=== PATIENT | female | born 1955 | race Caucasian/White ===

== ENCOUNTER → 2017-03-29 | Outpatient (CLI) | payer OTHER ==
--- NOTE | 2017-03-29 13:45 | REP ---
RIGHT WRIST, FOUR VIEWS: HISTORY: Pain. There is no acute fracture or dislocation. There is narrowing of the first carpometacarpal joint space as well as the metacarpophalangeal and intermediate interphalangeal joint spaces with associated osteophyte formation. IMPRESSION: Degenerative change as described above. Signed by Devon Salazar MD 03/29/2017 02:03 P
== END ==
LOC: M WUC 11:59
PROVIDERS: ATTEND Physician Assistant
DX: M18.11 Unilateral primary osteoarthritis of first carpometacarpal joint, right hand (principal)

== ENCOUNTER → 2018-09-18 | Outpatient (CLI) | payer OTHER ==
[2018-09-18 16:50] LABS: BASO % 0.4 % (0.0-1.0); EOS # 0.1 10^3/uL (0.0-0.50); EOS % 1.7 % (0.0-3.0); HEMATOCRIT 38.5 % (36.0-47.0); HEMOGLOBIN 13.2 g/dl (12.0-15.5); LYMPH % 19.9 % (24.0-44.0); MEAN CORPUSCULAR HEMOGLOBIN 29.7 pg (27.0-33.0); MEAN CORPUSCULAR HGB CONC 34.3 g/dl (32.0-36.5); MEAN CORPUSCULAR VOLUME 86.5 fl (80.0-96.0); MONO # 0.4 10^3/uL (0.0-0.8); MONO % 6.7 % (0.0-5.0); NEUTROPHILS # 3.7 10^3/uL (1.8-7.7); NEUTROPHILS % 70.9 % (36.0-66.0); PLATELET COUNT, AUTOMATED 270 10^3/uL (150-450); RED BLOOD COUNT 4.45 10^6/uL (4.00-5.40); WHITE BLOOD COUNT 5.2 10^3/uL (4.0-10.0)
[2018-09-18 16:55] LABS: BLOOD UREA NITROGEN 17 MG/DL (7-18); CALCIUM LEVEL 9.1 MG/DL (8.8-10.2); CARBON DIOXIDE LEVEL 30 MEQ/L (21-32); CHLORIDE LEVEL 97 MEQ/L (98-107); CREATININE FOR GFR 0.83 MG/DL (0.55-1.30); GLOMERULAR FILTRATION RATE > 60.0 (>45); GLUCOSE, FASTING 88 MG/DL (70-100); POTASSIUM SERUM 3.7 MEQ/L (3.5-5.1); SODIUM LEVEL 137 MEQ/L (136-145)
== END ==
LOC: M WUC 12:56
PROVIDERS: ATTEND Internal Medicine Cardiovascular Disease
DX: R07.9 Chest pain, unspecified (principal); R94.39 Abnormal result of other cardiovascular function study

== ENCOUNTER → 2018-12-28 | Outpatient (CLI) | payer OTHER ==
[2018-12-28 18:10] LABS: ALBUMIN 3.7 GM/DL (3.2-5.2); ALT/SGPT 32 U/L (12-78); BILIRUBIN,TOTAL 0.6 MG/DL (0.2-1.0); BLOOD UREA NITROGEN 17 MG/DL (7-18); CALCIUM LEVEL 8.5 MG/DL (8.8-10.2); CARBON DIOXIDE LEVEL 31 MEQ/L (21-32); CHLORIDE LEVEL 105 MEQ/L (98-107); CREATININE FOR GFR 0.77 MG/DL (0.55-1.30); GLOMERULAR FILTRATION RATE > 60.0 (>45); GLUCOSE, FASTING 89 MG/DL (70-100); POTASSIUM SERUM 3.9 MEQ/L (3.5-5.1); SODIUM LEVEL 142 MEQ/L (136-145); TOTAL PROTEIN 7.1 GM/DL (6.4-8.2)
== END ==
LOC: M WUC 14:30
PROVIDERS: ATTEND Nurse Practitioner Adult Health
DX: Z51.81 Encounter for therapeutic drug level monitoring (principal); Z79.899 Other long term (current) drug therapy; E78.2 Mixed hyperlipidemia; E11.9 Type 2 diabetes mellitus without complications

== ENCOUNTER → 2019-04-07 | Outpatient (REF) | LOC: M LAB LCGH 15:10 | PROVIDERS: ATTEND Surgery | DX: Z00.00 Encounter for general adult medical examination without abnormal findings (principal) ==

== ENCOUNTER → 2019-06-28 | Outpatient (CLI) | payer MEDICARE, OTHER ==
--- NOTE | 2019-06-28 12:08 | REP ---
HIDA SCAN: Following the intravenous administration of 6.6 mCi technetium 99m mebrofenin, multiple images of the right upper quadrant are performed for 1 hour. There is radiotracer activity draining through the drainage tube. There is activity in the biliary system which extends into the duodenum at 25 minutes postinjection. No free leakage is identified scintigraphically into the peritoneal cavity. Electronically Signed by Sebastian James MD 07/01/2019 09:14 A
== END ==
LOC: M RAD 09:16
PROVIDERS: ATTEND Physician Assistant
DX: K83.2 Perforation of bile duct (principal)
CPT/HCPCS: 78226; A9537

== ENCOUNTER → 2019-08-28 | Outpatient (CLI) | payer MEDICARE ==
--- NOTE | 2019-08-28 13:39 | REP ---
Hepatobiliary scan: History: Bile leakage status post gallbladder removal. Comparison study June 28, 2019. Technique: 6.4 mCi technetium 99m mebrofenin is injected and sequential anterior abdominal images are acquired. Scintigraphic findings: The initial hepatocellular parenchymal uptake phase is normal and homogeneous. Intrahepatic bile ducts are first labeled at the 10-minute charity along with early gastrointestinal labeling. Subsequent images demonstrate washout from the liver parenchyma into the small intestine. There is no evidence of bile stream leakage. Impression: Normal hepatobiliary scan post cholecystectomy. No evidence of bile leak seen scintigraphically. Electronically Signed by Darnell Gonzalez MD 08/28/2019 07:03 P
== END ==
LOC: M RAD 08:32
PROVIDERS: ATTEND Physician Assistant
DX: K83.2 Perforation of bile duct (principal)
CPT/HCPCS: 78226; A9537

== ENCOUNTER → 2021-02-23 | Outpatient (CLI) | payer MEDICARE ==
[~2021-02-23] MED LIST: LIDOCAINE 1% MDV 20ML VIAL As Ordered ONE; LOSA50TA88 PO; POTA1TAB14 PO; SIMV40TA20 PO; SODIUM BICARBONATE 8.4% INJ 50MEQ 50 ML VIAL As Ordered ONE; VENL150C43 PO
[2021-02-23 12:26] VITALS: BP 158/80
--- NOTE | 2021-02-23 18:45 | REP ---
INDICATION: LT PAROTID MASS. COMPARISON: None. TECHNIQUE: The procedure was performed by Marietta Salas [facility], under the direct supervision of Dr. James. The risks and benefits of the procedure were explained to the patient and an informed consent was obtained both verbally and written. Directly prior to the start of the procedure a formal time-out was completed in the procedure room. FINDINGS: Using ultrasound guidance the left parotid mass was localized. Due to the location of the mass it was determined that a fine needle aspiration would be the safest approach. The skin was prepped and draped in a sterile fashion. Two mL of buffered lidocaine was used as a local anesthetic. Using ultrasound guidance a 8 fine needle aspirations were obtained using 25 gauge needles. Four specimens were sent to our lab here, and remaining 4 were sent out in RPMI solution, for further testing. The patient tolerated the procedure well and there were no immediate complications. After the appropriate amount of monitored convalescence the patient was discharged from the department. IMPRESSION: 1. Ultrasound-guided left parotid mass fine-needle aspiration. <Electronically signed by Marietta Salas > 02/23/21 1442 <Electronically signed by Sebastian James > 02/23/21 3030
== END ==
LOC: M IRPRO 11:21
PROVIDERS: ATTEND Otolaryngology
DX: R89.6 Abnormal cytological findings in specimens from other organs, systems and tissues (principal); D37.030 Neoplasm of uncertain behavior of the parotid salivary glands

== ENCOUNTER → 2021-03-10 | Outpatient (CLI) | payer MEDICARE ==
[~2021-03-10] MED LIST changes: -LIDOCAINE 1% MDV 20ML VIAL As Ordered ONE; -SODIUM BICARBONATE 8.4% INJ 50MEQ 50 ML VIAL As Ordered ONE
== END ==
LOC: M LABSMTC 11:56
PROVIDERS: ATTEND Anesthesiology
DX: Z01.818 Encounter for other preprocedural examination (principal)

== ENCOUNTER 2021-03-15 10:13 | Day surgery (SDC) | payer MEDICARE ==
[~2021-03-15] VITALS: Ht 162.6 cm; Wt 125.4 kg
[~2021-03-15 10:13] MED LIST changes: +LR 1,000 ML IV ONE
[2021-03-15] MEDS ORDERED: LIDOCAINE 2% 100MG/5ML SDV (FOR ANES.) As Ordered ONE (10:44)
[2021-03-15] MEDS ORDERED: propofoL 200 MG/20 ML VIAL As Ordered ONE (10:44)
[2021-03-15] MEDS ORDERED: ROCURONIUM BROMIDE 50 MG/5 ML VIAL As Ordered ONE ×2 (10:44→10:47)
[2021-03-15] MEDS ORDERED: dexameTHASONE 4 MG/ML 1ML VIAL (J1100 PER 1MG) As Ordered ONE (10:44)
[2021-03-15] MEDS ORDERED: ONDANSETRON 4MG/2ML VIAL As Ordered ONE (10:44)
[2021-03-15] MEDS ORDERED: fentaNYL 250 MCG/5 ML INJECTION (J3010) As Ordered ONE (10:45)
[2021-03-15] MEDS ORDERED: MIDAZOLAM INJ 2MG/2ML VIAL (J2250 PER 1MG) As Ordered ONE (10:45)
[2021-03-15] MEDS ORDERED: LIDOCAINE W/EPINEPHRINE 1% 20ML VIAL As Ordered ONE (13:10)
[2021-03-15] MEDS ORDERED: BACITRACIN OINTMENT 30GM TUBE As Ordered ONE (13:10)
[2021-03-15] MEDS ORDERED: SEVOFLURANE INHAL SOLN 250 ML BTL As Ordered ONE (13:22)
[2021-03-15] MEDS ORDERED: LABETALOL 100MG/20ML VIAL As Ordered ONE (14:39)
[2021-03-15] MEDS ORDERED: ACETAMINOPHEN 1000MG 100ML IV BTL (OFIRMEV) (J0131 PER 10MG) As Ordered ONE (14:42)
[2021-03-15] MEDS ORDERED: HYDROmorphone HCL 2 MG/ML 1ML VIAL (J1170) As Ordered ONE (14:51)
[2021-03-15] MEDS ORDERED: REMIFENTANIL 1MG 3ML VIAL As Ordered ONE (15:36)
[2021-03-15] MEDS ORDERED: ePHEDrine SULFATE 25 MG/5 ML(5MG/ML) SYRINGE As Ordered ONE ×2 (15:48→15:59)
[2021-03-15] MEDS ORDERED: SUGAMMADEX SODIUM 500 MG/5 ML VIAL (BRIDION) As Ordered ONE (16:33)
--- NOTE | 2021-03-15 17:20 | POST-OPPD ---
Postoperative Procedure Note Date Of Procedure: Mar 15, 2021 Time Of Procedure: 17:00 PREOPERATIVE DIAGNOSIS: [Left parotid mass] POSTOPERATIVE DIAGNOSIS: [Same] PROCEDURE: [Left superficial parotidectomy with facial nerve monitoring] SURGEON: [Surgeon Dr. Telles] AUDIT PRACTICE INTERN: [Net Maker Dr. Landrum] ANESTHESIA: [General] ESTIMATED BLOOD LOSS: [100] FINDINGS: SPECIMENS: [Left parotid mass] COMPLICATIONS: [None] REPLACED: [None] DRAINS: [BHANU] POSTOPERATIVE CONDITION: [None ] Operative note: Fariba's patient was seen in the office and diagnosed the above condition decision was made in consultation with the patient after explanation of the risks and benefits to undergo the above-named procedure. She was admitted to the same-day surgery program taken to the operating room where she was administered a general anesthetic via intravenous injection she was then intubated endotracheally. The facial nerve monitor was connected and accuracy was ensured. We prepped and draped in usual sterile fashion the skin was marked with a surgical marking pen. We injected the skin with 1% lidocaine with epinephrine. Using a 15 blade we incised the skin sharply along the anterior tragal crease behind the ear and onto an anterior neck crease. We elevated the flap off of the sternocleidomastoid muscle and off the parotid fascia. This was secured with a 2-0 silk suture. We then dissected down the anterior wall of the cartilaginous canal. We identified the tragal pointer. We then identified the facial nerve. Branches were traced in succession and the parotid tissue was elevated off. We moved in an inferior to superior fashion. Each area was stimulated before sacrificing. The mass was then removed we irrigated thoroughly with saline. Each branch was then tested and found to be intact. A BHANU drain was placed. Eleno was placed in the wound bed we closed with interrupted 4-0 Vicryl suture the skin was closed with 5-0 Prolene in a running locking fashion. Bacitracin ointment was placed over the wound. Patient was allowed to recover from anesthetic and taken the postanesthesia care area in stable condition. Jason Telles MD Mar 15, 2021 17:20
[2021-03-15] MEDS ORDERED: LR 1,000 ML IV SCH (17:25)
[2021-03-15] MEDS ORDERED: ONDANSETRON 4MG/2ML VIAL IV PRN ×2 (17:25→17:35)
[2021-03-15] MEDS ORDERED: oxyCODONE 5MG TAB PO PRN (17:25)
[2021-03-15] MEDS ORDERED: fentaNYL 100 MCG/2 ML INJECTION (J3010) IV PRN (17:25)
[2021-03-15] MEDS ORDERED: MEPERIDINE 50 MG/ML 1ML VIAL (J2175) IM PRN (18:05)
[2021-03-15] MEDS: SIMVASTATIN 40 MG TAB PO SCH (18:35)
[2021-03-15] MEDS: VENLAFAXINE **XR** 75MG CAPSULE PO SCH (18:35)
[2021-03-15] MEDS: LOSARTAN 50MG TABLET PO SCH (18:35)
[2021-03-15] MEDS: ANEXSIA, NORCO 7.5MG/325MG TABLET(HYDROCODONE/APAP) PO PRN (18:49)
[2021-03-15 19:00] VITALS: BP 159/70
--- NOTE | 2021-03-15 19:58 | ECGEPIP ---
[facility] Test Date: 2021-03-15 Pat Name: DEIRDRE SIMON Department: Room: - Gender: Female Schedule Hanger: XIANG : 1955 Requested By: Jason Arora Order Number: [id number] Reading MD: Josue Pina Measurements Intervals Bradley Rate: 69 P: 44 UT: 180 QRS: -9 QRSD: 92 T: 13 QT: 398 QTc: 426 Interpretive Statements normal sinus rhythm with isolated PAC. LA conduction disturbance LEFT VENTRICULAR HYPERTROPHY by Pieter criteria No prior tracing for comparison Electronically Signed on 03-15-2021 19:58:02 EDT by Josue Pina
[2021-03-15 22:00] VITALS: BP 140/66
[2021-03-15] MEDS: BACITRACIN OINTMENT 30GM TUBE TOP SCH (22:46)
[2021-03-16] MEDS ORDERED: LR 1,000 ML IV SCH (01:55)
[2021-03-16] MEDS ORDERED: CLINDAMYCIN 600 MG in IV 1 EA IV SCH (02:00)
[2021-03-16] MEDS: CLINDAMYCIN 600 MG in IV 1 EA IV SCH ×2 (02:23→09:16)
[2021-03-16 06:00] VITALS: BP 141/63
[2021-03-16] MEDS: ANEXSIA, NORCO 7.5MG/325MG TABLET(HYDROCODONE/APAP) PO PRN (06:33)
[2021-03-16] MEDS: SIMVASTATIN 40 MG TAB PO SCH (09:16)
[2021-03-16] MEDS: VENLAFAXINE **XR** 75MG CAPSULE PO SCH (09:16)
[2021-03-16 09:17] VITALS: BP 141/63
[2021-03-16] MEDS: LOSARTAN 50MG TABLET PO SCH (09:17)
[2021-03-16] MEDS: BACITRACIN OINTMENT 30GM TUBE TOP SCH (09:18)
[2021-03-16 10:00] VITALS: BP 134/58
--- NOTE | 2021-03-16 13:38 | DS.PDOC ---
Discharge Summary General Date of Admission 03/15/21 Date of Discharge 03/16/21 Attending Physician: Jason Telles MD Discharge Summary PROCEDURES PERFORMED DURING STAY: [None]. ADMITTING DIAGNOSES: 1. [Left parotid mass]. DISCHARGE DIAGNOSES: 1. [Same]. COMPLICATIONS/CHIEF COMPLAINT: Left Parotid Mass. HISTORY OF PRESENT ILLNESS: . Fariba is a 66-year-old patient with a left parotid mass. FNA was indeterminate. She underwent surgical resection yesterday. HOSPITAL COURSE: [Fariba underwent surgical resection on 03/15/2021. She was observed overnight. Drainage was 15 overnight and 6 during the day. Drain was removed. Postoperatively Fariba had weakness of the left facial nerve. During the surgery we were able to stimulate the branches with good response in all branches. We will discharge her home with the prescription for prednisone, Augmentin and Lortab. She will follow up in 1 week for suture removal. We discussed at length the importance of Lacri-Lube in her left eye. She understands that if there is any irritation whatsoever she will contact the office immediately.]. DISCHARGE MEDICATIONS: Please see below. ALLERGIES: Please see below. PHYSICAL EXAMINATION ON DISCHARGE: VITAL SIGNS: Please see below. GENERAL: [Alert and oriented no distress.] HEENT: [Parotid incision is clean and dry covered with bacitracin no significant swelling or infection. Facial nerve remains weak. There is no eye irritation.] NECK: CARDIOVASCULAR EXAMINATION: RESPIRATORY EXAMINATION: ABDOMINAL EXAMINATION: EXTREMITIES: SKIN: NEUROLOGICAL EXAMINATION: PSYCHIATRIC EXAMINATION: LABORATORY DATA: Please see below. IMAGING: [None] PROGNOSIS: [Good] ACTIVITY: [As tolerated]. DIET: [Resume normal diet] DISCHARGE PLAN: [She will to be discharged today. She is to follow-up in 1 week for suture removal.] DISPOSITION: . DISCHARGE INSTRUCTIONS: 1. [Coat the area with bacitracin ointment twice daily for the next week. Avoid heavy exercise or lifting. We discussed the importance of eye care and she will contact the office if there is any issues with irritation or soreness. She will use the Lacri-Lube at night. Prescriptions were given. Follow-up 1 week for suture removal]. ITEMS TO FOLLOWUP ON ON OUTPATIENT: 1. . DISCHARGE CONDITION: [Stable]. TIME SPENT ON DISCHARGE: minutes. Vital Signs/I&Os Vital Signs Date Time Temp Pulse Resp B/P (MAP) Pulse Ox O2 Delivery O2 Flow Rate FiO2 03/16/21 10:00 97.2 63 16 134/58 (83) 95 Room Air 03/15/21 22:00 2.0 I&O- Last 24 Hours up to 6 AM 03/16/21 06:00 Intake Total 1800 ml Output Total 680 ml Balance 1120 ml Laboratory Data Labs 24H Laboratory Tests 2 03/15/21 18:28: Bedside Glucose (Misc Panel) 156H FSBS Laboratory Tests Test 03/15/21 18:28 Range/Units Bedside Glucose (Misc Panel) 156 80-115 MG/DL Discharge Medications Scheduled Losartan Potassium (Losartan Potassium) 50 Mg Tablet, 50 MG PO DAILY, (Reported) Potassium Chloride (Potassium Chloride) 20 Meq Tablet.er, 20 MEQ PO DAILY, (Reported) Simvastatin (Simvastatin) 40 Mg Tablet, 40 MG PO DAILY, (Reported) Venlafaxine HCl (Venlafaxine HCl ER) 150 Mg Cap.er.24h, 1 CAP PO DAILY, (Repor margy) Allergies Coded Allergies: Sulfa (Sulfonamide Antibiotics) (Verified Allergy, Intermediate, SWELLING AND HIVES, 03/12/21) morphine (Verified Allergy, Unknown, 03/12/21) Jason Telles MD Mar 16, 2021 13:38
== END 2021-03-16 13:35 | disposition home or self-care (01) ==
LOC: M SDC 10:13 → M MS5PR 18:25 → M SDC 03-16 13:35
PROVIDERS: ATTEND Otolaryngology
DX: D11.0 Benign neoplasm of parotid gland (principal); I10 Essential (primary) hypertension; E78.5 Hyperlipidemia, unspecified; F32.9 Major depressive disorder, single episode, unspecified; Z79.899 Other long term (current) drug therapy; Z88.2 Allergy status to sulfonamides; Z88.5 Allergy status to narcotic agent
CPT/HCPCS: 42415; 88307; 93005; 96361; 96365; 96366; 96375; J0131; J1100; J1170; J2250; J2405; J3010

== ENCOUNTER → 2021-04-06 | Outpatient (RCR) | payer MEDICARE ==
[~2021-04-06] MED LIST changes: -LR 1,000 ML IV ONE
== END ==
LOC: M PT 04-02 11:53
PROVIDERS: ATTEND Otolaryngology
DX: R29.810 Facial weakness (principal); Z98.890 Other specified postprocedural states
CPT/HCPCS: 97032; 97161; G0283

== ENCOUNTER 2021-05-05 14:14 | Outpatient (RCR) | payer MEDICARE | END 2021-05-06 | LOC: M PT 14:14 | PROVIDERS: ATTEND Otolaryngology | DX: Z98.890 Other specified postprocedural states (principal); D11.9 Benign neoplasm of major salivary gland, unspecified ==

== ENCOUNTER 2021-05-07 11:45 | Outpatient (RCR) | payer MEDICARE | END 2021-06-06 | LOC: CANPRERCR → M PT 13:01 | PROVIDERS: ATTEND Otolaryngology | DX: D11.9 Benign neoplasm of major salivary gland, unspecified (principal) ==

== ENCOUNTER → 2023-02-02 | Outpatient (CLI) | payer MEDICARE ==
[~2023-02-02] MED LIST changes: +LOSA50TA28 PO; -LOSA50TA88 PO; +POTA-298 PO; -POTA1TAB14 PO
== END ==
LOC: M PLAIMG 09:07
PROVIDERS: ATTEND Otolaryngology
DX: M54.2 Cervicalgia (principal)

== ENCOUNTER → 2023-12-07 | Outpatient (CLI) | payer MEDICARE | LOC: M LAB 12:22 | PROVIDERS: ATTEND Internal Medicine Gastroenterology | DX: K59.1 Functional diarrhea (principal) ==

== ENCOUNTER → 2023-12-14 | Outpatient (REF) | payer MEDICARE | LOC: M LAB REF 14:50 | PROVIDERS: ATTEND Internal Medicine Gastroenterology | DX: R10.84 Generalized abdominal pain (principal); K57.30 Diverticulosis of large intestine without perforation or abscess without bleeding; K76.0 Fatty (change of) liver, not elsewhere classified; Z80.0 Family history of malignant neoplasm of digestive organs; K76.89 Other specified diseases of liver; A00.0 Cholera due to Vibrio cholerae 01, biovar cholerae; R19.7 Diarrhea, unspecified ==

== ENCOUNTER → 2024-09-13 | Outpatient (CLI) | payer MEDICARE | LOC: M RAD 10:09 | PROVIDERS: ATTEND Internal Medicine Gastroenterology | DX: K76.89 Other specified diseases of liver (principal); K76.0 Fatty (change of) liver, not elsewhere classified; K59.1 Functional diarrhea; R10.84 Generalized abdominal pain; Z86.0101 Personal history of adenomatous and serrated colon polyps ==

== ENCOUNTER → 2024-12-10 | Outpatient (REF) | payer MEDICARE ==
[2024-12-10 18:53] LABS: BASO % 0.6 % (0.0-1.0); EOS # 0.1 10^3/uL (0.0-0.5); EOS % 1.4 % (0.0-3.0); HEMATOCRIT 41.1 % (36.0-47.0); HEMOGLOBIN 13.5 g/dl (12.0-15.5); LYMPH # 1.1 10^3/uL (1.5-5.0); LYMPH % 21.6 % (24.0-44.0); MEAN CORPUSCULAR HEMOGLOBIN 29.3 pg (27.0-33.0); MEAN CORPUSCULAR HGB CONC 32.8 g/dl (32.0-36.5); MEAN CORPUSCULAR VOLUME 89.2 fl (80.0-96.0); MONO # 0.4 10^3/uL (0.0-0.8); MONO % 7.1 % (2.0-8.0); NEUTROPHILS # 3.4 10^3/uL (1.5-8.5); NEUTROPHILS % 68.9 % (36.0-66.0); PLATELET COUNT, AUTOMATED 243 10^3/uL (150-450); RED BLOOD COUNT 4.61 10^6/uL (4.00-5.40)
== END ==
LOC: M WUC 18:08
PROVIDERS: ATTEND Nurse Practitioner Family
DX: M79.671 Pain in right foot (principal)

== ENCOUNTER 2025-04-03 12:55 | Emergency (ER) | payer MEDICARE ==
[~2025-04-03] VITALS: Ht 162.6 cm; Wt 122.7 kg
[2025-04-03] MEDS ORDERED: ELIQ5TAB PO (13:37)
[2025-04-03] MEDS ORDERED: METO1TAB87 PO (13:37)
[2025-04-03] MEDS ORDERED: TOLT4CAP3 PO (13:37)
[2025-04-03] MEDS ORDERED: AMLO1TAB24 PO (13:37)
[2025-04-03] MEDS ORDERED: PANT40TA29 PO (13:37)
[2025-04-03] MEDS ORDERED: SOLI10TA PO (13:37)
[2025-04-03] MEDS ORDERED: LOSA25TA13 PO (14:20)
[2025-04-03] MEDS ORDERED: ROSU5TAB49 PO (14:21)
[2025-04-03] MEDS ORDERED: HOME MED LIST COMPLETE! XX SCH (14:25)
[2025-04-03 15:19] VITALS: BP 161/66; TEMP 96.1; O2SAT 98
== END 2025-04-03 15:25 | disposition home or self-care (01) ==
LOC: M ED 12:55 → EDBD 12:55 → M ED 15:25
DX: S00.83XA Contusion of other part of head, initial encounter (principal); Y92.512 Supermarket, store or market as the place of occurrence of the external cause; Y93.9 Activity, unspecified; Y99.9 Unspecified external cause status; W01.198A Fall on same level from slipping, tripping and stumbling with subsequent striking against other object, initial encounter; T45.515A Adverse effect of anticoagulants, initial encounter; I10 Essential (primary) hypertension; Z88.2 Allergy status to sulfonamides; Z88.5 Allergy status to narcotic agent; Z79.01 Long term (current) use of anticoagulants; Z79.899 Other long term (current) drug therapy